=== PATIENT | female | born 2000 | race Caucasian/White ===

== ENCOUNTER 2023-12-22 23:35 | Emergency (ER) | payer OTHER, SELFPAY ==
[2023-12-22 23:42] VITALS: BP 115/75
--- NOTE | 2023-12-23 00:18 | ED.SKININJ ---
HPI-Injury
<KELL Landis - Last Filed: 12/23/23 00:51>
General
Chief Complaint: Bite
Time Seen by Provider: 12/23/23 00:12
History of Present Illness-Injury
Is this injury a work related problem?: No
Is pt an associate of [facility]?: No
Initial Injury comments:
Pt is a 23 y/o female presenting after getting bit by a dog 1 hour ago. She states the bite is located to the mid abdomen. She denies any pain associated with the bite. She states it is her friends dog and they told her the dog is up to date with
its shots. The patient states she is up to date with her childhood immunization but is unsure when her last tetanus shot is.
Phy Exam
<KELL Landis - Last Filed: 12/23/23 00:51>
Physical Exam
Physical Exam:
GENERAL: Alert , in no apparent distress
EYE: pupils equal and reactive
Throat: Airway intact, no exudates
NECK: Supple, no significant adenopathy.
CARDIAC: Regular rate and rhythm .
LUNGS: Clear breath sounds bilaterally, no acute respiratory distress, no wheezes/rales/rhonchi
ABDOMEN: Soft, nondistended, nontender, no cvat
NEUROLOGICAL: Alert and oriented, no focal neuro deficits
SKIN: 3 cm laceration to the mid abdomen through epidermis. 3 superficial scrapes to the left middle abdomen.
MUSCULOSKELETAL: No edema, well perfused.
PSYCH: Normal and appropriate interaction.
Course
<KELL Landis - Last Filed: 12/23/23 00:51>
Orders/Labs/Results
Orders:
Orders
12/23/23 01:10
Tetanus/Diphth/Acelpertussis [Adacel] 0.5 ml IM .ONCE ONE
Vital Signs
Initial and Last Documented VS:
Initial Vital Signs
Temp Pulse Resp BP Pulse Ox
98.1 F 67 20 115/75 99
12/22/23 23:42 12/22/23 23:42 12/22/23 23:42 12/22/23 23:42 12/22/23 23:42
Last Documented Vital Signs
Temp Pulse Resp BP Pulse Ox
98.1 F 67 20 115/75 99
12/22/23 23:42 12/22/23 23:42 12/22/23 23:42 12/22/23 23:42 12/22/23 23:42
<Bob Meehan DO - Last Filed: 12/23/23 01:16>
Orders/Labs/Results
Orders:
Orders
12/23/23 01:10
Tetanus/Diphth/Acelpertussis [Adacel] 0.5 ml IM .ONCE ONE
Vital Signs
Initial and Last Documented VS:
Initial Vital Signs
Temp Pulse Resp BP Pulse Ox
98.1 F 67 20 115/75 99
12/22/23 23:42 12/22/23 23:42 12/22/23 23:42 12/22/23 23:42 12/22/23 23:42
Last Documented Vital Signs
Temp Pulse Resp BP Pulse Ox
98.1 F 67 20 115/75 99
12/22/23 23:42 12/22/23 23:42 12/22/23 23:42 12/22/23 23:42 12/22/23 23:42
<KELL Landis - Last Filed: 12/23/23 00:51>
*Radiology
Radiology exam reviewed: other (n/a)
*Pulse Oximetry
Patient hypoxic: no
*EKG
Interpreted by ED Provider?: NA
*Landscape Technician Interpretation
Rate: Landscape Technician- N/A
*Critical Care Note
Total Time (30-74mins, 75-104mins- exclusive of procedures): Not Applicable
ED Attending Note
<KELL Landis - Last Filed: 12/23/23 00:51>
-
Portions of this chart may have been created with voice recognition software.� Occasional wrong word or��sound alike� substitutions may have occurred due to the inherent limitations of voice recognition software.
<Bob Meehan DO - Last Filed: 12/23/23 01:16>
ED Attending Note
Patient seen and examined by attending physician: Yes
I performed the substantive portion of visit, reviewed & personally made and approve the management plan that is documented in note by myself or DANYELLE.: Yes
ED Attending Note:
23-year-old female presents to the emergency room for evaluation of a wound to the her abdomen. Patient states she was visiting a friend and the friend's dog bit her. Dog is immunized. Patient is not aware of when her last tetanus shot was.
Patient has a 1 and half centimeter jagged laceration left lower abdominal wall.
Wound was thoroughly irrigated. Loosely approximated with 2 sutures.
Discharge Plan
Departure
Patient Disposition: Home (Routine Discharge)
Date of Disposition: 12/23/23
Time of Disposition: 01:14
Patient with high blood pressure during this ER visit?: No
Condition: Good
Discharge Problem:
Dog bite of abdomen, Laceration of abdomen
Instructions: Animal Bites (DC), Laceration Repair With Stitches (DC)
Prescriptions:
New
amoxicillin-pot clavulanate 875-125 mg tablet
1 tab PO BID Qty: 6 0RF
Referrals:
Delbert Xie DO [Family Provider] -
Activity Restrictions/Additional Instructions:
Stitches should be removed in 7 days.
Interventions
Interventions:
*Risk Screen - Suicide Last Done: 12/22/23 23:42
*General Assessment Last Done: 12/22/23 23:42
*Neglect/Abuse Screening Last Done: 12/22/23 23:42
ED- Fall Risk Assessment Last Done: 12/22/23 23:42
Discharge Date and Time
Print Language: SOUTH [place]FR[place]
[2023-12-23] MEDS: ADACEL 0.5 ML IM (01:30)
[2023-12-23] MEDS: AUGMENTIN 875 MG/125 MG 1 TABLET PO (01:31)
== END 2023-12-23 01:38 | disposition home or self-care (01) ==
LOC: EMR 23:35
PROVIDERS: EMERGENCY PHYSICIAN Emergency Medicine; FAMILY PHYSICIAN Family Medicine
DX: S31.119A Laceration without foreign body of abdominal wall, unspecified quadrant without penetration into peritoneal cavity, initial encounter (principal); W54.0XXA Bitten by dog, initial encounter; Z23 Encounter for immunization
CPT/HCPCS: 99282; 12001; 90471; 90715